=== PATIENT | female | born 1950 | race Caucasian/White ===

== ENCOUNTER → 2020-01-18 | Outpatient (CLI) | payer MEDICARE, BC ==
[2020-01-18 16:14] LABS: HEMATOCRIT 42.9 % (36.0-47.0); MEAN CORPUSCULAR HEMOGLOBIN 27.2 pg (27.0-33.0); MEAN CORPUSCULAR HGB CONC 30.3 g/dl (32.0-36.5); MEAN CORPUSCULAR VOLUME 89.7 fl (80.0-96.0); PLATELET COUNT, AUTOMATED 264 10^3/uL (150-450); RED BLOOD COUNT 4.78 10^6/uL (4.00-5.40); WHITE BLOOD COUNT 11.4 10^3/uL (4.0-10.0)
== END ==
LOC: M LAB 15:13
PROVIDERS: ATTEND Physician Assistant Medical
DX: R19.5 Other fecal abnormalities (principal)

== ENCOUNTER → 2020-01-21 | Outpatient (CLI) | payer MEDICARE, BC ==
[~2020-01-21] MED LIST: ATOR40TA75 PO; CALC500T68 PO; COQ-100C5 PO; EFFE75CA2 PO; GLUC1CAP10 PO; METO1TAB7 PO; NAPR-885 PO; OMEG1CAP16 PO; OMEP40CA97 PO; RA T500C2 PO; THERTAB52 PO; XANA0.5T PO; [UNRECOGNIZED DRUG - OTHER]; collagen PO
== END ==
LOC: M LABSMTC 09:10
PROVIDERS: ATTEND Anesthesiology
DX: Z01.812 Encounter for preprocedural laboratory examination (principal); Z20.828 Contact with and (suspected) exposure to other viral communicable diseases

== ENCOUNTER 2020-01-26 09:23 | Day surgery (SDC) | payer MEDICARE, BC ==
[~2020-01-26] VITALS: Ht 157.5 cm; Wt 87.1 kg
[~2020-01-26 09:23] MED LIST changes: +NS 1,000 ML IV ONE
[2020-01-26] MEDS ORDERED: propofoL 200 MG/20 ML VIAL As Ordered ONE (10:30)
[2020-01-26] MEDS ORDERED: LIDOCAINE 2% 100MG/5ML SDV (FOR ANES.) As Ordered ONE (10:30)
--- NOTE | 2020-01-26 10:35 | ROOR ---
Patient Name: Charlotte Larsen Procedure Date: 01/26/2020 10:04 AM Date of : 1950 Age: 69 Room: [facility] Gender: Female Note Status: Finalized Procedure: Colonoscopy Indications: Positive Cologuard test Providers: Porter HILARIO MD Referring MD: ADRIANA LATHAM MD Requesting Provider: Medicines: Monitored Anesthesia Care Complications: No immediate complications. Procedure: Pre-Anesthesia Assessment: - The heart rate, respiratory rate, oxygen saturations, blood pressure, adequacy of pulmonary ventilation, and response to care were monitored throughout the procedure. The Colonoscope was introduced through the anus and advanced to 10 cm into the ileum. The colonoscopy was performed without difficulty. The patient tolerated the procedure well. The quality of the bowel preparation was good. Findings: The perianal and digital rectal examinations were normal. Mild sigmoid diverticulosis and small internal hemorrhoids. The entire examined colon appeared normal on direct and retroflexion views. The terminal ileum appeared normal. Impression: - Mild sigmoid diverticulosis and small internal hemorrhoids. - The entire colon is otherwise normal on direct and retroflexion views. - The examined portion of the ileum was normal. - No specimens collected. Recommendation: - Repeat colonoscopy in 5 years for screening purposes. Procedure Code(s): --- Professional --- 38666, Colonoscopy, flexible; diagnostic, including collection of specimen(s) by brushing or washing, when performed (separate procedure) Diagnosis Code(s): --- Professional --- R19.5, Other fecal abnormalities CPT copyright 2019 [employer]. All rights reserved. The codes documented in this report are preliminary and upon ups driver review may be revised to meet current compliance requirements. Porter Hilario MD Porter HILARIO MD 01/26/2020 10:35:24 AM Electronically signed by Porter HILARIO MD Number of Addenda: 0 Note Initiated On: 01/26/2020 10:04 AM Estimated Blood Loss: Estimated blood loss: none.
[2020-01-26 10:50] VITALS: BP 147/94
== END 2020-01-26 11:25 | disposition home or self-care (01) ==
LOC: M OPP 09:23
PROVIDERS: ATTEND Internal Medicine Gastroenterology
DX: R19.5 Other fecal abnormalities (principal); K57.30 Diverticulosis of large intestine without perforation or abscess without bleeding; K64.8 Other hemorrhoids; I10 Essential (primary) hypertension; E78.5 Hyperlipidemia, unspecified; M19.90 Unspecified osteoarthritis, unspecified site; F41.9 Anxiety disorder, unspecified; F32.9 Major depressive disorder, single episode, unspecified; M41.9 Scoliosis, unspecified; Z92.21 Personal history of antineoplastic chemotherapy; Z79.899 Other long term (current) drug therapy; Z82.49 Family history of ischemic heart disease and other diseases of the circulatory system; Z82.3 Family history of stroke

== ENCOUNTER → 2023-10-26 | Outpatient (REF) | payer MEDICARE, BC ==
[~2023-10-26] MED LIST changes: -NS 1,000 ML IV ONE; +OMEP40CA4 PO; -OMEP40CA97 PO
== END ==
LOC: M SFHCDERM 08:11
PROVIDERS: ATTEND Physician Assistant
DX: B35.1 Tinea unguium (principal)